=== PATIENT | male | born 1955 | race African-American/Black ===

== ENCOUNTER 2019-05-01 12:03 | Emergency (ER) | payer BC ==
--- NOTE | 2019-05-01 14:28 | EDM.PDOC ---
ED HPI GENERAL MEDICAL PROBLEM - General Chief Complaint: ENT Problem Stated Complaint: CONGESTION Time Seen by Provider: 05/01/19 14:27 Source of Information: Reports: Patient - History of Present Illness INITIAL COMMENTS - FREE TEXT/NARRATIVE: HISTORY AND PHYSICAL: History of present illness: [Patient presents with cough for 2 weeks with some mild sinus congestion no fever nausea vomiting chills sweats And has similar symptoms] Review of systems: As per history of present illness and below otherwise all systems reviewed and negative. Past medical history: As per history of present illness and as reviewed below otherwise noncontributory. Surgical history: As per history of present illness and as reviewed below otherwise noncontributory. Social history: No reported history of drug or alcohol abuse. Family history: As per history of present illness and as reviewed below otherwise noncontributory. Physical exam: HEENT: Atraumatic, normocephalic, pupils reactive, negative for conjunctival pallor or scleral icterus, mucous membranes moist, throat clear, neck supple, nontender, trachea midline. Lungs: Clear to auscultation, breath sounds equal bilaterally, chest nontender. Heart: S1S2, regular, negative for clicks, rubs, or JVD. Abdomen: Soft, nondistended, nontender. Negative for masses or hepatosplenomegaly. Negative for costovertebral tenderness. Pelvis: Stable nontender. Genitourinary: Deferred. Rectal: Deferred. Extremities: Atraumatic, negative for cords or calf pain. Neurovascular unremarkable. Neuro: Awake, alert, oriented. Cranial nerves II through XII unremarkable. Cerebellum unremarkable. Motor and sensory unremarkable throughout. Exam nonfocal. Diagnostics: [ Strep influenza ] Therapeutics: [[employer] ] Impression: bronchitis slight infiltrate on cxr, will follow radiology [persistant cough] Definitive disposition and diagnosis as appropriate pending reevaluation and review of above. - Related Data Allergies Allergy/AdvReac Type Severity Reaction Status Date / Time No Known Allergies Allergy Verified 05/01/19 13:08 Home Meds: Home Meds Allopurinol [Zyloprim] 100 mg PO 05/01/19 [History] Calcitriol [Rocaltrol] 0.25 mcg PO 05/01/19 [History] Cholecalciferol (Vitamin D3) [D-2000] 2,000 unit PO 05/01/19 [History] Doxazosin Mesylate [Cardura XL] 4 mg PO DAILY 05/01/19 [History] Losartan [Cozaar] 100 mg PO DAILY 05/01/19 [History] Magnesium 200 mg PO 05/01/19 [History] Metoprolol Succinate 100 mg PO 05/01/19 [History] Pantoprazole Sodium 40 mg PO 05/01/19 [History] Rivaroxaban [Xarelto] 20 mg PO 05/01/19 [History] Simvastatin 20 mg PO 05/01/19 [History] Tacrolimus 1 mg PO 05/01/19 [History] Zolpidem [Ambien] 10 mg PO ONETIME 05/01/19 [History] amLODIPine Besylate [Amlodipine Besylate] 5 mg PO 05/01/19 [History] mycophenolate mofetiL [Cellcept] 250 mg PO BID 05/01/19 [History] predniSONE [Prednisone] 10 mg PO 05/01/19 [History] Past Medical History Cardiovascular History: Reports: Bypass, Heart Valve Replacement, Hypertension, PA - Infectious Disease History Infectious Disease History: Reports: None - Past Surgical History Other Male Surgeries/Procedures: Kidney transplant Musculoskeletal Surgical History: Reports: Hip Replacement, Knee Replacement Social & Family History - Family History Family Medical History: Noncontributory - Tobacco Use Smoking Status *Q: Never Smoker Second Hand Smoke Exposure: No - Caffeine Use Caffeine Use: Reports: None - Recreational Drug Use Recreational Drug Use: No ED ROS GENERAL - Review of Systems Review Of Systems: See Below ED EXAM, GENERAL - Physical Exam Exam: See Below Course - Vital Signs Last Recorded V/S: Last Vital Signs Temp 97.3 F 05/01/19 13:15 Pulse 63 05/01/19 13:15 Resp 16 05/01/19 13:15 BP 130/78 05/01/19 13:15 Pulse Ox 95 05/01/19 13:15 - Orders/Labs/Meds Orders: Active Orders 24 hr Category Date Time Status Chest 1V Frontal [CR] Stat Exams 05/01/19 13:23 Taken CULTURE STREP A CONFIRMATION [RM] Stat Lab 05/01/19 13:37 Results STREP SCRN A RAPID W CULT CONF [RM] Stat Lab 05/01/19 13:37 Results Departure - Departure Time of Disposition: 14:47 Disposition: Home, Self-Care 01 Condition: Good Clinical Impression: Bronchitis - Discharge Information Referrals: PCP,None [Primary Care Provider] - Forms: ED Department Discharge Additional Instructions: The following information is given to patients seen in the emergency department who are being discharged to home. This information is to outline your options for follow-up care. We provide all patients seen in our emergency department with a follow-up referral. The need for follow-up, as well as the timing and circumstances, are variable depending upon the specifics of your emergency department visit. If you don't have a primary care physician on staff, we will provide you with a referral. We always advise you to contact your personal physician following an emergency department visit to inform them of the circumstance of the visit and for follow-up with them and/or the need for any referrals to a consulting specialist. The emergency department will also refer you to a specialist when appropriate. This referral assures that you have the opportunity for follow-up care with a specialist. All of these measure are taken in an effort to provide you with optimal care, which includes your follow-up. Under all circumstances we always encourage you to contact your private physician who remains a resource for coordinating your care. When calling for follow-up care, please make the office aware that this follow-up is from your recent emergency room visit. If for any reason you are refused follow-up, please contact the [facility] emergency department at and asked to speak to the emergency department charge nurse. Sepsis Event Note - Evaluation Sepsis Screening Result: No Definite Risk - Focused Exam Vital Signs: Vital Signs Temp Pulse Resp BP Pulse Ox 05/01/19 13:15 97.3 F 63 16 130/78 95 Date Exam was Performed: 05/01/19 Time Exam was Performed: 14:46 - My Orders Last 24 Hours: My Active Orders 05/01/19 13:23 Chest 1V Frontal [CR] Stat 05/01/19 13:37 CULTURE STREP A CONFIRMATION [RM] Stat STREP SCRN A RAPID W CULT CONF [RM] Stat - Assessment/Plan Last 24 Hours: My Active Orders 05/01/19 13:23 Chest 1V Frontal [CR] Stat 05/01/19 13:37 CULTURE STREP A CONFIRMATION [RM] Stat STREP SCRN A RAPID W CULT CONF [RM] Stat
--- NOTE | 2019-05-01 15:44 | CR ---
INDICATION: Shortness of breath. COMPARISON: None. FINDINGS/IMPRESSION: No definite acute intrathoracic findings. No pleural effusions. Mild elevation of left diaphragm. Normal heart size. Status post median sternotomy and CABG. No acute osseous findings. Dictated by Jimmie Perez MD @ 05/01/2019 3:42:04 PM Dictated by: Jimmie Perez MD @ 05/01/2019 15:42:27 (Electronically Signed)
== END 2019-05-01 15:04 | disposition home or self-care (01) ==
LOC: MW.ED 12:03
DX: J40 Bronchitis, not specified as acute or chronic (principal); I10 Essential (primary) hypertension; I25.2 Old myocardial infarction; Z79.899 Other long term (current) drug therapy
CPT/HCPCS: 71045; 71045-26; 87081; 87804; 87880-QW; 99283-25

== ENCOUNTER 2021-05-05 10:20 | Emergency (ER) | payer BC, OTHER ==
[2021-05-05] MEDS ORDERED: Sodium Chloride 0.9% 1,000 ML IV SCH (10:30)
[2021-05-05] MEDS ORDERED: Sodium Chloride 0.9% 2.5 ML Syringe FLUSH PRN (10:30)
[2021-05-05] MEDS ORDERED: Sodium Chloride 0.9% 10 ML Syringe FLUSH PRN (10:30)
[2021-05-05] MEDS ORDERED: Ondansetron 4 MG/2 ML SDV IVPUSH ONE (11:18)
[2021-05-05] MEDS ORDERED: Morphine 4 MG/ML VIAL IVPUSH ONE (11:18)
[2021-05-05 12:34] LABS: BLOOD UREA NITROGEN,BUN 14 mg/dL (7.0-18.0); CARBON DIOXIDE,CO2 28.2 mmol/L (21.0-32.0); CHLORIDE,CL 102 mmol/L (98-107); GLUCOSE RANDOM 115 mg/dL (74-106); LIPASE 179 U/L (73-393); POTASSIUM,K 3.5 mmol/L (3.5-5.1); SODIUM,NA 139 mmol/L (136-148)
== END 2021-05-05 15:59 | disposition home or self-care (01) ==
LOC: MW.ED 10:20
DX: K80.20 Calculus of gallbladder without cholecystitis without obstruction (principal); I10 Essential (primary) hypertension; I25.2 Old myocardial infarction; E11.9 Type 2 diabetes mellitus without complications; Z79.899 Other long term (current) drug therapy
CPT/HCPCS: 36415; 76705; 80053; 83690; 85025; 96374; 96375; 99284; J2270; J2405; J7030